=== PATIENT | male | born 2000 ===

== ENCOUNTER 2024-06-09 13:13 | Emergency (ER) | payer OTHER ==
[~2024-06-09] VITALS: Ht 185.4 cm; Wt 109.0 kg
--- NOTE | 2024-06-09 13:49 | ED.PDOC ---
HPI (NEURO) HPI Comments 24 y.o male with PMhx of HTN, presents to the ED via EMS for an evaluation of seizure today. EMS reports patient was at the store today when seizure occurred. Patient reports using his Vape while walking around the store, he became dizzy, went to hold on to something and lost consciousness. Patient did fall and presents with a skin tear to his right forearm with no active bleeding. Patient denies history of seizures and has not had recent head trauma. Patient does complaint of generalized headache at this time. EMS reports on scene patient was alert to name only but presented to the ED A+O x4 and is able to follow commands. Patient has a medical history of HTN but is non compliant with medication. BG on scene was 97. Chief Complaint: Seizure Time Seen by MD: 13:22 Reviewed Notes: Nurses Notes, Medications, Allergies Information Source: Patient, Emergency Med Personnel Mode of Arrival: EMS Severity: Moderate Headache Severity: Moderate Timing: Hours Duration: Since onset Prehospital treatment: Accucheck (97) Seizure Quality: Tonic-clonic Headache Quality: Aching Headache Location: Generalized Seizure Location: Generalized Onset: At rest Circumstances: Spontaneous Symptoms: Faintness Before: Ill During: LOC After: Normal Mentation History of: Hypertension Modifying factors: Nothing Associated Signs and Symptoms: Headache Past Medical History PAST MEDICAL HISTORY: HTN Surgical History: Denies all surgeries Family History Family History: Reviewed,noncontributory to illness, No family hx of Cancer, No family hx of DM, No family hx of Heart sonya, No family hx of HTN, No family hx ofKidney sonya, No family hx of Liver sonya, No family hx of Lung sonya, No family hx of Stroke Social History Smoker: Non-Smoker Alcohol: Denies ETOH Use Drugs: Denies Drug Use Lives In: Home Constitutional: denies: chills, diaphoresis, fatigue, fever, malaise, sweats, weakness, others EENTM: denies: blurred vision, double vision, ear bleeding, ear discharge, ear drainage, ear pain, ear ringing, eye pain, eye redness, hearing loss, mouth pain, mouth swelling, nasal discharge, nose bleeding, nose congestion, nose pain, photophobia, tearing, throat pain, throat swelling, voice changes, others Respiratory: denies: cough, hemoptysis, orthopnea, SOB at rest, shortness of breath, SOB with excertion, stridor, wheezing, others Cardiovascular: denies: chest pain, dizzy spells, diaphoresis, Dyspnea on exertion, edema, irregular heart beat, left arm pain, lightheadedness, palpitations, PND, syncope, others Gastrointestinal: denies: abdomen distended, abdominal pain, blood streaked bowels, constipated, diarrhea, dysphagia, difficulty swallowing, hematemesis, melena, nausea, poor appetite, poor fluid intake, rectal bleeding, rectal pain, vomiting, others Genitourinary: denies: burning, dysuria, flank pain, frequency, hematuria, incontinence, penile discharge, penile sore, pain, testicle pain, testicle swelling, urgency, others Neurological: reports: headache, seizure; denies: dizziness, fainting, left sided numbness, left sided weakness, numbness, paresthesia, pre-existing deficit, right sided numbness, right sided weakness, speech problems, tingling, tremors, weakness, others Musculoskeletal: denies: back pain, gout, joint pain, joint swelling, muscle pain, muscle stiffness, neck pain, others Integumetry: denies: bruises, change in color, change in hair/nails, dryness, laceration, lesions, lumps, rash, wounds, others Allergic/Immunocompromised: denies: Difficulty Healing, Frequent Infections, Hives, Itching, others Hematologic/Lymphatic: denies: anemia, blood clots, easy bleeding, easy bruising, swollen glands, others Endocrine: denies: excessive hunger, excessive sweating, excessive thirst, excessive urination, flushing, intolerance to cold, intolerance to heat, unexplained weight gain, unexplained weight loss, others Psychiatric: denies: anxiety, bipolar disorder, depression, hopeless, panic disorder, schizophrenia, sleepless, suicidal, others All Other Systems: Reviewed and Negative Physical Exam General Appearance: No Apparent Distress, Normal HEENT: Normal ENT Inspection, Pharynx Normal, TMs Normal Neck: Full Range of Motion, Non-Tender, Normal, Normal Inspection Respiratory: Chest Non-Tender, Lungs Clear, No Accessory Muscle Use, No Respiratory Distress, Normal Breath Sounds Cardiovascular: No Edema, No JVD, No Murmur, No Gallop, Normal Peripheral Pulses, Regular Rate/Rhythm Breast Exam: Deferred Gastrointestinal: No Organomegaly, Non Tender, No Pulsatile Mass, Normal Bowel Sounds, Soft Genitalia: Deferred Pelvic: Deferred Rectal: Deferred Extremities: No calf tenderness, Normal capillary refill, Normal inspection, Normal range of motion, Non-tender, No pedal edema Musculoskeletal : Apperance: Normal Neurologic: Alert, rivet flunky II-XII nml as Tested, No Motor Deficits, Normal Affect, Normal Mood, No Sensory Deficits, Seizure, Other (No tongue or mouth lacerations. ) Cerebellar Function: Normal Reflexes: Normal Skin: Dry, Normal Color, Warm Lymphatic: No Adenopathy Was a procedure done? Was a procedure done?: No Differential Diagnosis (SZ) Seizure: Hyperventilation, Psychogenic Seizure, Alcohol Withdrawl, Anticonvulsant Withdrawl, Closed Head Injury, CVA/TIA, Drug Ingestion, Hypocalcemia, Hypoglycemia, Hyponatremia, Hypoxemia, Idiopathic, Mass Lesion, Syncope, Epilepsy-Break Through, Epilepsy-Status X-Ray, Labs, Meds, VS Vital Signs Date Time Temp Pulse Resp B/P (MAP) Pulse Ox O2 Delivery O2 Flow Rate FiO2 06/09/24 14:05 93 19 96 Room Air* 0 21 06/09/24 14:05 93 19 114/79 (91) 96 06/09/24 13:18 98.5 106 16 138/74 (95) 96 Lab Test 06/09/24 14:19 Range/Units White Blood Count 12.4 H 4.4-10.8 10^3/uL Red Blood Count 5.09 4.5-5.90 10^6/uL Hemoglobin 15.3 13.5-17.5 g/dL Hematocrit 45.0 41.0-53.0 % Mean Corpuscular Volume 88.4 80.0-100.0 fL Mean Corpuscular Hemoglobin 30.0 28.0-32.0 pg Mean Corpuscular Hemoglobin Concent 33.9 32.0-36.0 g/dL Red Cell Distribution Width 13.8 11.8-14.3 % Platelet Count 261 140-450 10^3/uL Mean Platelet Volume 8.4 6.9-10.8 fL Neutrophils (%) (Auto) 87.7 H 37.0-80.0 % Lymphocytes (%) (Auto) 7.3 L 10.0-50.0 % Monocytes (%) (Auto) 4.7 0.0-12.0 % Eosinophils (%) (Auto) 0.1 0.0-7.0 % Basophils (%) (Auto) 0.2 0.0-2.0 % Neutrophils # (Auto) 10.9 H 1.6-8.6 10 ^3/uL Lymphocytes # (Auto) 0.9 0.4-5.4 10 ^3/uL Monocytes # (Auto) 0.6 0-1.3 10 ^3/uL Eosinophils # (Auto) 0 0-0.8 10 ^3/uL Basophils # (Auto) 0 0-0.2 10 ^3/uL Nucleated Red Blood Cells 0.0 % Sodium Level 137 136-145 mmol/L Potassium Level 4.0 3.5-5.1 mmol/L Chloride Level 105 98-107 mmol/L Carbon Dioxide Level 25 20-31 mmol/L Anion Gap 7 5-15 Blood Urea Nitrogen 13 9-23 mg/dL Creatinine 0.78 0.700-1.30 mg/dL Glomerular Filtration Rate Calc 129 >90 mL/min BUN/Creatinine Ratio 16.7 10.0-20.0 Serum Glucose 86 74-106 mg/dL Calcium Level 10.5 H 8.7-10.4 mg/dL Current Medications Medications (Trade) Dose Ordered Sig/Sriram Route Start Time Stop Time Status Last Admin Levetiracetam (Keppra Tablet) 1,000 mg ONCE ONCE PO 06/09/24 13:45 06/09/24 13:46 DC 06/09/24 14:52 [place] [id number] Ph: [phone] DIAGNOSTIC IMAGING Diagnostic Imaging Report : [id number] Signed PATIENT: MAGDY MCKEON ACCT: [id number] UNIT: [id number] : 2000 LOC: ER ROOM / BED: / AGE / SEX: 24 / M ADM STATUS: REG ER SERVICE 1333 ORDERING PHYSICIAN: VINCE PERALTA MD PROCEDURE(s): HWOCT - HEAD WITHOUT CONTRAST REASON: new onset seizure with headache ORDER NUMBER(s): [id number], ACCESSION NUMBER(s): [id number] CLINICAL INFORMATION: 24 years old, Male; new onset seizure with headache. TECHNIQUE: Axial imaging was obtained through the brain without contrast. Coronal and sagittal reformatted images were obtained, reviewed, and stored. Images were reviewed in brain and bone windows. All CT scans at this medical facility are performed using dose modulation techniques as appropriate to a performed exam including the following: Automated exposure control was utilized; adjustment of the MA and/or KV according to patient size; and use of iterative reconstruction technique. CTDIvol = 61.56 mGy DLP = 985.49 mGy-cm COMPARISON: None FINDINGS: There is no acute intracranial hemorrhage or extraaxial fluid collection. No mass effect or midline shift. The ventricles and sulci are within normal limits in size for age. Basal cisterns are patent. The calvarium is unremarkable. Paranasal sinuses and mastoid air cells are clear. IMPRESSION: No CT evidence of acute intracranial abnormality. ATED BY: DANY ALBERTO DO DICTATED DATE/TIME: 06/09/241405 SIGNED BY: DANY ALBERTO DO SIGNED DATE/TIME: 06/09/241405 CC: Time of 1ST Reevaluation: 13:47 Reevaluation 1ST: Unchanged Time of 2ND Reevaluation: 15:12 Reevaluation 2ND: Resolved Patient Education/Counseling: Diagnosis, Treatment, Prognosis, Need For Follow Up Family Education/Counseling: Diagnosis, Treatment, Prognosis, Need For Follow Up, No Family Present Additional Information I reviewed the following notes from patient's past medical encounters: First time visit The following tests were ordered, and results were reviewed by me: Drug Screen, BMP, CBC, seizure precautions Additional Information was gathered from interviewing the following independent historians: Paramedics I reviewed and agreed with the following test results read by other providers: CT head WO contrast I discussed treatment and results with medical personnel pt has not had another episode of seizure while here. this event will be reported to the DMV and he is advised to not drive. he will follow up with his PCP Departure 1 Departure Time of Disposition: 15:12 Impression: Primary Impression: Seizure Disposition: HOME / SELF CARE / HOMELESS Condition: Good Additional Instructions: follow up with your doctor on Tuesday for neurology referral. do not drive or operate heavy machinery until you are cleared by your neurologist Discharged With: Self, Relative Critical Care Note Critical Care Time?: Yes (45 min-critical care time only) Critical care comment: Due to concerns for patients condition deteriorating, the care required my highest level of attention and readiness to intervene. I assessed the patient, reviewed the medical records, ordered the appropriate tests and treatments, then reassessed for results and responsiveness. I communicated with medical personnel and consultants and formulated a plan of care. Total critical care time excludes any procedures Stability Stability form required: No I personally scribed for VINCE [facility]ALTA [facility] on 06/09/24 at 13:49. Electronically submitted by Jessi Lisa ([facility] I personally scribed for VINCE PERALTA MD ([facility] on 06/09/24 at 14:22. Electronically submitted by Jessi Lisa ([email or web address]). VINCE PERALTA MD Jun 09, 2024 13:49
[2024-06-09 14:05] VITALS: BP 114/79; PULSE 93; RESP 19; O2SAT 96
--- NOTE | 2024-06-09 14:09 | DVH ---
CLINICAL INFORMATION: 24 years old, Male; new onset seizure with headache. TECHNIQUE: Axial imaging was obtained through the brain without contrast. Coronal and sagittal refor matted images were obtained, reviewed, and stored. Images were reviewed in brain and bone windows. A ll CT scans at this medical facility are performed using dose modulation techniques as appropriate to a performed exam including the following: Automated exposure control was utilized; adjustment of the MA and/or KV according to patient size; and use of iterative reconstruction technique. CTDIvol = 61.56 mGy DLP = 985.49 mGy-cm COMPARISON: None FINDINGS: There is no acute intracranial hemorrhage or extraaxial fluid collection. No mass effect o r midline shift. The ventricles and sulci are within normal limits in size for age. Basal cisterns a re patent. The calvarium is unremarkable. Paranasal sinuses and mastoid air cells are clear. IMPRESSION: No CT evidence of acute intracranial abnormality.
[2024-06-09 14:36] LABS: Basophils # (auto) 0 10 ^3/uL (0-0.2); Basophils % (auto) 0.2 % (0.0-2.0); Eosinophils # (auto) 0 10 ^3/uL (0-0.8); Eosinophils % (auto) 0.1 % (0.0-7.0); Hemoglobin 15.3 g/dL (13.5-17.5); Lymphocytes # (auto) 0.9 10 ^3/uL (0.4-5.4); Lymphocytes % (auto) 7.3 % (10.0-50.0); Mean Corpuscular Hgb Conc. 33.9 g/dL (32.0-36.0); Mean Corpuscular Volume 88.4 fL (80.0-100.0); Monocytes # (auto) 0.6 10 ^3/uL (0-1.3); Monocytes % (auto) 4.7 % (0.0-12.0); Neutrophils # (auto) 10.9 10 ^3/uL (1.6-8.6); Neutrophils % (auto) 87.7 % (37.0-80.0); Platelet Count (auto) 261 10^3/uL (140-450); Red Blood Cells 5.09 10^6/uL (4.5-5.90); Red Cell Distribution Width 13.8 % (11.8-14.3); White Blood Cell 12.4 10^3/uL (4.4-10.8)
[2024-06-09 14:44] LABS: Chloride 105 mmol/L (98-107); Sodium 137 mmol/L (136-145)
[2024-06-09 14:45] LABS: Anion Gap 7 (5-15); Carbon Dioxide 25 mmol/L (20-31)
[2024-06-09 14:50] LABS: BUN/Creatinine Ratio 16.7 (10.0-20.0); Blood Urea Nitrogen 13 mg/dL (9-23); Glucose 86 mg/dL (74-106)
[2024-06-09] MEDS: levETIRAcetam 500 MG TAB PO ONE (14:52)
[2024-06-09 15:01] LABS: Calcium 10.5 mg/dL (8.7-10.4)
== END 2024-06-09 16:11 | disposition home or self-care (01) ==
LOC: ER 13:13 → EDBD 13:13 → ER 16:11
DX: R56.9 Unspecified convulsions (principal); I10 Essential (primary) hypertension
CPT/HCPCS: 36415; 70450; 80048; 85025; 99291